=== PATIENT | male | born 1985 | race African-American/Black ===

== ENCOUNTER 2016-10-20 18:36 | Emergency (ER) | payer SELFPAY ==
[~2016-10-20] VITALS: Ht 167.6 cm; Wt 108.9 kg
[2016-10-20] MEDS ORDERED: MORPHINE SULFATE INJ 4 MG/ML DISP.SYRIN ONE (18:47)
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
[2016-10-20] MEDS ORDERED: MORPHINE SULFATE INJ 2 MG/ML DISP.SYRIN IM ONE (19:00)
[2016-10-20] MEDS ORDERED: BACITRACIN ZINC OINT PACKET 1 EA PACKET TP ONE (19:00)
--- NOTE | 2016-10-20 19:24 | NUR ---
Patient discharged to home in stable condition. Written and verbal after care instructions given. Patient verbalizes understanding of instruction.
[2016-10-20 19:25] VITALS: BP 138/76
== END 2016-10-20 19:26 | disposition home or self-care (01) ==
LOC: ER 18:39
DX: M79.622 Pain in left upper arm (principal); Z88.6 Allergy status to analgesic agent; Z88.8 Allergy status to other drugs, medicaments and biological substances; W22.11XA Striking against or struck by driver side automobile airbag, initial encounter; Y93.89 Activity, other specified; Y92.89 Other specified places as the place of occurrence of the external cause; Y99.9 Unspecified external cause status
CPT/HCPCS: A4217; A4606; A6402; J2270; Z7610